=== PATIENT | female | born 1990 | race Two or more races ===

== ENCOUNTER → 2019-10-16 | Outpatient (CLI) | payer OTHER | END | disposition home or self-care (01) | LOC: PRENATAL 15:00 | DX: O35.3XX1 Maternal care for (suspected) damage to fetus from viral disease in mother, fetus 1 (principal) ==

== ENCOUNTER 2019-12-25 20:08 | Inpatient (IN) | payer OTHER ==
[2019-12-25] MEDS ORDERED: PRENATAL TABLE1 EAC1 PO (20:52)
[2019-12-28] MEDS ORDERED: IBUPROFEN800 MG PO (08:24)
[2019-12-28] MEDS ORDERED: CODE1TAB37 PO (08:24)
[2019-12-28] MEDS ORDERED: DOCUSATE SODIU100 MG PO (08:25)
== END 2019-12-28 11:06 | DRG 788 ==
LOC: LDR 20:08 → OB/GYN 20:08
PROVIDERS: ADMIT Obstetrics & Gynecology; ATTEND Obstetrics & Gynecology
PROC: 4A0HXFZ Measurement of Products of Conception, Cardiac Rhythm, External Approach (ICD-10-PCS; 2019-12-25)
PROC: 10D00Z1 Extraction of Products of Conception, Low, Open Approach (ICD-10-PCS; principal; 2019-12-26)
DX: O82 Encounter for cesarean delivery without indication (principal); O14.94 Unspecified pre-eclampsia, complicating childbirth; Z3A.38 38 weeks gestation of pregnancy; Z37.0 Single live birth